=== PATIENT | female | born 1990 | race Caucasian/White ===

== ENCOUNTER 2017-05-11 19:17 | Emergency (ER) | payer OTHER ==
[2017-05-11 19:43] LABS: BILIRUBIN,URINE NEGATIVE (NEGATIVE); GLUCOSE, URINE (UA) NEGATIVE (NEGATIVE); KETONES,URINE (UA) NEGATIVE (NEGATIVE); LEUKOCYTE ESTERASE, URINE NEGATIVE (NEGATIVE); NITRITE,URINE NEGATIVE (NEGATIVE); OCCULT BLOOD,URINE TRACE-INTA (NEGATIVE); PROTEIN,URINE NEGATIVE (NEGATIVE); UROBILINOGEN,URINE 0.2 (NORMAL) E.U./dL (NORMAL)
[2017-05-11 19:47] LABS: CLARITY,URINE CLEAR (CLEAR); HCG UR QUAL NEGATIVE
--- NOTE | 2017-05-11 21:03 | ED Physician Documentation ---
PD HPI FEMALE - Stated complaint Stated Complaint: FEMALE - Chief complaint Chief Complaint: General - History obtained from History obtained from: Patient - History of Present Illness Timing - onset: Yesterday Timing - duration: Days (2) Timing - details: Abrupt onset, Still present Associated symptoms: No: Fever, Back pain Contributing factors: No: , Exposed to STD Similar symptoms before: Diagnosis (uti) Recently seen: Not recently seen Review of Systems Constitutional: denies: Fever, Chills GI: denies: Abdominal Pain, Vomiting : denies: Discharge Musculoskeletal: denies: Back pain PD PAST MEDICAL HISTORY - Past Medical History Past Medical History: Yes Cardiovascular: None Respiratory: None Neuro: None Endocrine/Autoimmune: None GI: None 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 : Chronic bladder infection HEENT: Chronic vision loss Psych: Anxiety Musculoskeletal: None Derm: None - Past Surgical History Past Surgical History: Yes General: Appendectomy - Present Medications Home Medications: Ambulatory Orders Medication Instructions Recorded Confirmed Cetirizine [ZyrTEC] 10 mg PO ONCE 05/11/17 05/11/17 Fluconazole [Diflucan] 150 mg PO ONCE #1 tablet 05/11/17 Metronidazole [Flagyl] 500 mg PO BID #14 tablet 05/11/17 Omeprazole [PriLOSEC] 20 mg PO DAILY 05/11/17 05/11/17 Sertraline [Zoloft] 50 mg PO DAILY 05/11/17 05/11/17 - Allergies Allergies/Adverse Reactions: Allergies Allergy/AdvReac Type Severity Reaction Status Date / Time iodine Allergy Rash Verified 05/11/17 19:24 - Social History Does the pt smoke?: Yes Smoking Status: Current every day smoker Does the pt drink ETOH?: Yes Substance Use and Type: Marijuana - Immunizations Immunizations are current?: No Immunizations: TDAP >10years/unknown - POLST Patient has POLST: No PD ED PE NORMAL - Vitals Vital signs reviewed: Yes - General General: Alert and oriented X 3, No acute distress, Well developed/nourished - HEENT HEENT: Pharynx benign - Abdomen Abdomen: Soft, Non tender - 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 No cervicitis per se. ) - Back Back: No CVA TTP Results - Vitals Vitals: Oxygen O2 Source Room air - Labs Labs: Microbiology 05/11/17 22:00 Wet Prep - Final Genital - Vaginal Laboratory Tests 05/11/17 Unknown Urine Color YELLOW Urine Clarity CLEAR Urine pH 6.0 Ur Specific [place] 1.025 Urine Protein NEGATIVE Urine Glucose (UA) NEGATIVE Urine Ketones NEGATIVE Urine Occult Blood TRACE-INTA Urine Nitrite NEGATIVE Urine Bilirubin NEGATIVE Urine Urobilinogen 0.2 (NORMAL) Ur Leukocyte Esterase NEGATIVE Ur Microscopic Review NOT INDICATED Urine Culture Comments NOT INDICATED Urine HCG, Qual NEGATIVE PD MEDICAL DECISION MAKING - ED course Complexity details: considered differential (urine appears too normal; discussed vaginitis can cause symptoms and did pelvic. ), d/w patient Departure - Departure Disposition: Home, Self Care Clinical Impression: Dysuria Vaginitis Qualifiers: Chronicity: acute Qualified Code(s): N76.0 - Acute vaginitis Condition: Stable Record reviewed to determine appropriate education?: Yes Instructions: ED Vaginosis Bacterial, ED Vaginal Infec Fungal Amanda Prescriptions: Fluconazole [Diflucan] 150 mg PO ONCE #1 tablet Metronidazole [Flagyl] 500 mg PO BID #14 tablet Comments: Your urine test has been normal. The vaginal exam does appear like a vaginitis. There is little bit that looks yeast but more so looks bacterial. Will treat with a dose of antifungal now and repeat that in a week as a single dose again. Flagyl twice daily for a week for the bacterial portion. The culture will result in 2-3 days and will call if we need to amend the antibiotic. Tylenol or ibuprofen if needed for fever and pains.Recheck if not improving over the next several days. Discharge Date/Time: 05/11/17 22:19
[2017-05-11] MEDS ORDERED: PHENAZOPYRIDINE 100 MG TABLET PO STA (21:16)
[2017-05-11] MEDS ORDERED: IBUPROFEN 600 MG TABLET PO STA (21:16)
[2017-05-11] MEDS ORDERED: oxyCODONE/ACET 5/325 Prepack 4 PO STA (22:04)
[2017-05-11] MEDS ORDERED: FLUCONAZOLE 100 MG TABLET PO STA (22:04)
[2017-05-11] MEDS ORDERED: metroNIDAZOLE 250 MG TABLET PO STA (22:04)
[2017-05-11 22:19] VITALS: BP 135/94
== END 2017-05-11 22:19 | disposition home or self-care (01) ==
LOC: ED 19:17
DX: R33.0 Drug induced retention of urine (principal); N76.0 Acute vaginitis; F17.200 Nicotine dependence, unspecified, uncomplicated
CPT/HCPCS: 81003; 81025; 87210; 87491; 87591; 99283; A9270; 81001; 87086

== ENCOUNTER 2017-11-11 10:54 | Emergency (ER) | payer OTHER ==
[2017-11-11 13:01] VITALS: BP 128/83
--- NOTE | 2017-11-11 13:01 | ED Physician Documentation ---
PD HPI URI - Stated complaint Stated Complaint: Chest congestion - Chief complaint Chief Complaint: Resp - History obtained from History obtained from: Patient - History of Present Illness Timing - onset: Today Timing details: Gradual onset, Still present (had feeling of malaise, cough and some clear sputum this morning and worsened into late morning. Had feeling of dyspnea and unable to catch breath. No itching, throat swelling, lightheaded. has feeling of aches.) Associated symptoms: Chills (and general malaise), Dry cough, Dyspnea. No: Fever, Sinus pain, Sore throat, Chest pain, NVD Contributing factors: No: Sick contact, Travel, COPD / asthma Similar symptoms before: Has not had sx before Recently seen: Not recently seen Review of Systems Constitutional: reports: Chills, Myalgias, Fatigue. denies: Fever Nose: reports: Congestion. denies: Rhinorrhea / runny nose Throat: denies: Sore throat Cardiac: denies: Chest pain / pressure, Palpitations Respiratory: reports: Dyspnea, Cough, Wheezing GI: reports: Nausea. 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 : Chronic bladder infection HEENT: Chronic vision loss Psych: Anxiety Musculoskeletal: None Derm: None - Past Surgical History Past Surgical History: Yes General: Appendectomy - Present Medications Home Medications: Ambulatory Orders Medication Instructions Recorded Confirmed Cetirizine [ZyrTEC] 10 mg PO ONCE 05/11/17 05/11/17 Omeprazole [PriLOSEC] 20 mg PO DAILY 05/11/17 05/11/17 Sertraline [Zoloft] 50 mg PO DAILY 05/11/17 05/11/17 Albuterol Sulf [Ventolin Hfa 2 - 3 puffs INH Q4HR PRN #1 inhaler 11/11/17 Inhaler] Benzonatate [Tessalon] 100 mg PO TID PRN #25 capsule 11/11/17 Dexamethasone [Decadron] 4 mg PO DAILY #5 tablet 11/11/17 - Allergies Allergies/Adverse Reactions: Allergies Allergy/AdvReac Type Severity Reaction Status Date / Time iodine Allergy Rash Verified 11/11/17 10:58 - Social History Does the pt smoke?: Yes Smoking Status: Current every day smoker Does the pt drink ETOH?: Yes - Immunizations Immunizations are current?: No Immunizations: TDAP >10years/unknown - POLST Patient has POLST: No PD ED PE NORMAL - Vitals Vital signs reviewed: Yes - General General: Alert and oriented X 3, No acute distress, Well developed/nourished - HEENT HEENT: Ears normal, Moist mucous membranes, Pharynx benign - Neck Neck: Supple, no meningeal sign, No adenopathy - Cardiac Cardiac: RRR, No murmur - Respiratory Respiratory: No: Clear bilaterally (mild wheezing/tightness. No coarse sounds. ) - Abdomen Abdomen: Soft, Non tender - Back Back: No CVA TTP - Derm Derm: Normal color, Warm and dry - Extremities Extremities: No deformity, No tenderness to palpate, Normal ROM s pain, No edema , No calf tenderness / cord - Neuro Neuro: Alert and oriented X 3, No motor deficit, Normal speech Results - Vitals Vitals: Vital Signs - 24 hr 11/11/17 11/11/17 11/11/17 10:56 13:00 13:38 Temperature 36.4 C L 36.2 C L Heart Rate 103 H 79 94 Respiratory 20 18 14 Rate Blood Pressure 138/83 H 128/83 H O2 Saturation 98 96 Oxygen O2 Source Room air PD MEDICAL DECISION MAKING - ED course Complexity details: re-evaluated patient (improved feeling of breathing with albuterol neb. ), considered differential (sounds like viral illness with malaise, aches, and congestion/cough. No signs of allergy per se (edema, rash). ) - Sepsis Event Vital Signs: Vital Signs - 24 hr 11/11/17 11/11/17 11/11/17 10:56 13:00 13:38 Temperature 36.4 C L 36.2 C L Heart Rate 103 H 79 94 Respiratory 20 18 14 Rate Blood Pressure 138/83 H 128/83 H O2 Saturation 98 96 Oxygen O2 Source Room air Departure - Departure Disposition: 01 Home, Self Care Clinical Impression: Dyspnea Qualifiers: Dyspnea type: shortness of breath Qualified Code(s): R06.02 - Shortness of breath Upper respiratory infection Qualifiers: URI type: unspecified URI Qualified Code(s): J06.9 - Acute upper respiratory infection, unspecified Condition: Stable Record reviewed to determine appropriate education?: Yes Instructions: ED URI Viral W Wheezing Follow-Up: NIKOLAS MILLAN [Primary Care Provider] - Prescriptions: Albuterol Sulf [Ventolin Hfa Inhaler] 2 - 3 puffs INH Q4HR PRN #1 inhaler PRN Reason: Shortness Of Air/Wheezing Benzonatate [Tessalon] 100 mg PO TID PRN #25 capsule PRN Reason: Cough Dexamethasone [Decadron] 4 mg PO DAILY #5 tablet Comments: This sounds likely to be a viral illness given your fatigue and aches associated with the cough and trouble breathing. Does not sound like an allergic reaction per se. We will treated with the inhaler and steroid and something for the cough and see how you do over the next couple of days. There could be some element of reflux causing irritation and so you could use some antacid and acid reducing medicine as well, such as mylanta or maalox. Forms: Activity restrictions Discharge Date/Time: 11/11/17 14:11
[2017-11-11] MEDS ORDERED: ALBUTEROL NEB 2.5 MG/3 ML INH STA (13:12)
[2017-11-11] MEDS ORDERED: CETIRIZINE 10 MG TABLET PO STA (13:12)
[2017-11-11] MEDS ORDERED: DEXAMETHASONE 10 MG/ML VIAL PO STA (13:12)
[2017-11-11] MEDS ORDERED: LIDOCAINE VISCOUS 2% 15 ML UDC MM STA (13:13)
[2017-11-11] MEDS ORDERED: MAG HYDROX/AL HYDROX/SIMETH 30 ML UDC PO STA (13:13)
== END 2017-11-11 14:11 | disposition home or self-care (01) ==
LOC: ED 10:54
DX: R06.02 Shortness of breath (principal); J06.9 Acute upper respiratory infection, unspecified; F17.200 Nicotine dependence, unspecified, uncomplicated
CPT/HCPCS: 94640; 94664; 99283; A9270